=== PATIENT | female | born 2000 ===

== ENCOUNTER 2023-11-14 22:23 | Emergency (ER) | payer BC ==
[2023-11-14 23:54] LABS: BASOPHILS ABSOLUTE AUTO 0.06 K/uL (0.00-0.20); BASOPHILS PERCENT AUTO 0.7 % (0.0-1.0); EOSINOPHILS ABSOLUTE AUTO 0.13 K/uL (0.00-0.45); EOSINOPHILS PERCENT AUTO 1.5 % (0.0-6.0); HEMATOCRIT 40.2 % (37.0-47.0); HEMOGLOBIN 13.6 g/dL (12.0-16.0); IMMATURE GRAN ABSOLUTE AUTO 0.02 K/uL (0.00-0.05); IMMATURE GRAN PERCENT AUTO 0.2 % (0.0-0.4); LYMPHOCYTES ABSOLUTE AUTO 2.07 K/uL (1.00-4.80); MEAN CORPUSCULAR HEMOGLOBIN 31.7 pg (28.0-32.0); MEAN CORPUSCULAR HGB CONC 33.8 g/dL (32.0-36.0); MEAN CORPUSCULAR VOLUME 93.7 fL (83.0-99.0); MEAN PLATELET VOLUME 10.2 fL (9.4-12.3); MONOCYTES ABSOLUTE AUTO 0.89 K/uL (0.00-0.80); MONOCYTES PERCENT AUTO 10.3 % (0.0-8.0); NEUTROPHILS ABSOLUTE AUTO 5.44 K/uL (1.80-7.70); NEUTROPHILS PERCENT AUTO 63.3 % (41.0-71.0); PLATELET COUNT,PLT 192 K/uL (150-400); RED BLOOD CELL COUNT 4.29 M/uL (4.10-5.30); WHITE BLOOD CELL COUNT,WBC 8.61 K/uL (3.9-11.3)
[2023-11-15 00:17] LABS: A/G RATIO 1.1 (0.9-1.6); ALBUMIN 3.9 g/dL (3.4-5.0); BILIRUBIN TOTAL 0.5 mg/dL (0.2-1.0); CALCIUM 8.8 mg/dL (8.5-10.1); CARBON DIOXIDE,CO2 27.3 mmol/L (21.0-32.0); CREATININE 0.7 mg/dL (0.6-1.0); EST CRCL DRUG DOSING (CG) 109.97 mL/min; POTASSIUM,K 3.4 mmol/L (3.5-5.1); PROTEIN TOTAL,TP 7.4 g/dL (6.4-8.2)
[2023-11-15 00:24] LABS: BILIRUBIN,URINE NEGATIVE (NEGATIVE); COLOR,URINE YELLOW; GLUCOSE,URINE NEGATIVE (NEGATIVE); KETONES,URINE NEGATIVE (NEGATIVE); LEUKOCYTE ESTERASE,URINE NEGATIVE (NEGATIVE); NITRITE,URINE NEGATIVE (NEGATIVE); OCCULT BLOOD,URINE LARGE (NEGATIVE); PROTEIN,URINE NEGATIVE (NEGATIVE); UROBILINOGEN,URINE 0.2 EU/dL (<2.0)
[2023-11-15 00:31] LABS: APPEARANCE,URINE SLT CLOUDY
[2023-11-15 00:32] LABS: BACTERIA,URINE FEW (NEGATIVE); EPITHELIAL CELLS,URINE MODERATE (NONE-FEW); MUCUS,URINE MODERATE (NONE-MOD); RBC,URINE 75-100 (0-2/HPF); WBC,URINE 0-2 (0-5/HPF)
== END 2023-11-15 01:53 | disposition home or self-care (01) ==
LOC: MW.ED 22:23
DX: O20.9 Hemorrhage in early pregnancy, unspecified (principal); Z3A.00 Weeks of gestation of pregnancy not specified
CPT/HCPCS: 36415; 76801; 76801-26; 80053; 81001; 84702; 85025; 99282; 99284

== ENCOUNTER 2024-09-20 04:00 | Inpatient (IN) | payer BC ==
[2024-09-20] MEDS ORDERED: Ondansetron 4 MG/2 ML SDV IVPUSH PRN (04:28)
[2024-09-20] MEDS ORDERED: Methylergonovine 0.2 MG/1 ML Amp IM PRN (04:28)
[2024-09-20] MEDS ORDERED: Sodium Chloride 0.9% 10 ML Syringe FLUSH PRN (04:28)
[2024-09-20] MEDS ORDERED: Sodium Chloride 0.9% 20 ML SDV IV PRN (04:28)
[2024-09-20] MEDS ORDERED: Butorphanol 2 MG/ML SDV IVPUSH PRN (04:28)
[2024-09-20] MEDS ORDERED: Misoprostol 200 MCG Tab RECTAL PRN (04:28)
[2024-09-20] MEDS ORDERED: Lidocaine 1% 50 ML MDV INJECT PRN (04:28)
[2024-09-20] MEDS ORDERED: Water For Irrigation,Sterile 1,000 ML Container IRR PRN (04:28)
[2024-09-20] MEDS ORDERED: Acetaminophen 325 MG Tab PO PRN (04:28)
[2024-09-20] MEDS ORDERED: Sodium Chloride 0.9% 2.5 ML Syringe FLUSH PRN (04:28)
[2024-09-20] MEDS ORDERED: Carboprost Tromethamine 250 MCG/1 mL Vial IM PRN (04:28)
[2024-09-20] MEDS: Lactated Ringers 1,000 ML IV SCH (04:40)
[2024-09-20] MEDS ORDERED: Benzocaine/Menthol 20%-0.5% Spray 78 GM Cannister TOP PRN (04:43)
[2024-09-20] MEDS ORDERED: Docusate Sodium 100 MG Cap PO PRN (04:43)
[2024-09-20] MEDS ORDERED: diphenhydrAMINE 50 MG Cap PO PRN (04:43)
[2024-09-20] MEDS ORDERED: Acetaminophen 500 MG Tab PO PRN (04:43)
[2024-09-20] MEDS ORDERED: Simethicone 80 MG Tab.Chew PO PRN (04:43)
[2024-09-20] MEDS ORDERED: Ibuprofen 800 MG Tab PO PRN (04:43)
[2024-09-20] MEDS ORDERED: Lanolin 100% Cream 7 GM Tube TOP PRN (04:43)
[2024-09-20] MEDS ORDERED: Witch Hazel Medicated Pads 40/Jar TOP PRN (04:43)
[2024-09-20] MEDS: Ropivacaine HCl/PF 400 MG in Premix Bag 1 BAG EPIDUR SCH (04:55)
[2024-09-20] MEDS ORDERED: Phenylephrine HCl In 0.9% NaCl 1 MG/10 ML Syringe IVPUSH PRN (05:01)
[2024-09-20] MEDS ORDERED: ePHEDrine 50 MG/ML SDV IM PRN (05:01)
[2024-09-20] MEDS ORDERED: ePHEDrine 50 MG/ML SDV IVPUSH PRN (05:01)
[2024-09-20 05:02] LABS: HEMOGLOBIN 13.5 g/dL (12.0-16.0); MEAN CORPUSCULAR HEMOGLOBIN 32.1 pg (28.0-32.0); MEAN CORPUSCULAR HGB CONC 34.6 g/dL (32.0-36.0); MEAN CORPUSCULAR VOLUME 92.6 fL (83.0-99.0); MEAN PLATELET VOLUME 10.8 fL (9.4-12.3); PLATELET COUNT,PLT 212 K/uL (150-400); RED BLOOD CELL COUNT 4.21 M/uL (4.10-5.30); WHITE BLOOD CELL COUNT,WBC 19.29 K/uL (3.9-11.3)
[2024-09-20] MEDS ORDERED: dexmedeTOMIDine HCl 200 MCG/2 ML SDV EPIDUR SCH (05:15)
[2024-09-20] MEDS: Oxytocin/0.9 % Sodium Chloride 30 UNIT/500 ML BAG IV SCH (07:30)
[2024-09-20 09:05] LABS: PH,UMBILICAL ARTERIAL 7.196 (7.18-7.38); PH,UMBILICAL VENOUS 7.347 (7.25-7.45)
[2024-09-20] MEDS: Phenylephrine HCl In 0.9% NaCl 1 MG/10 ML Syringe ONE (14:31)
[2024-09-20] MEDS: Bupivacaine 0.5% 10 ML SDV ONE (14:31)
[2024-09-20] MEDS: Ropivacaine HCl/PF 200 ML ONE (14:31)
[2024-09-20] MEDS: Bupivacaine 0.5% 10 ML SDV INJECT ONE (14:32)
[2024-09-20] MEDS: Oxytocin/0.9 % Sodium Chloride 30 UNIT/500 ML BAG ONE (14:32)
[2024-09-21 05:44] LABS: HEMATOCRIT 38.1 % (37.0-47.0); HEMOGLOBIN 12.7 g/dL (12.0-16.0); MEAN CORPUSCULAR HGB CONC 33.3 g/dL (32.0-36.0); MEAN CORPUSCULAR VOLUME 92.9 fL (83.0-99.0); MEAN PLATELET VOLUME 10.1 fL (9.4-12.3); PLATELET COUNT,PLT 185 K/uL (150-400); WHITE BLOOD CELL COUNT,WBC 16.12 K/uL (3.9-11.3)
== END 2024-09-21 12:30 | disposition home or self-care (01) | DRG 560 ==
LOC: MW.OB 04:00 → MW.OBCHECK 04:00 → MW.OB 04:28 → OBSVTOIN 07:28 → MW.OB 12:29
PROVIDERS: ADMIT Obstetrics & Gynecology; ATTEND Obstetrics & Gynecology
PROC: 10E0XZZ Delivery of Products of Conception, External Approach (ICD-10-PCS; principal; 2024-09-20)
PROC: 3E0R3BZ Introduction of Anesthetic Agent into Spinal Canal, Percutaneous Approach (ICD-10-PCS; 2024-09-20)
PROC: 0HQ9XZZ Repair Perineum Skin, External Approach (ICD-10-PCS; 2024-09-20)
DX: O42.02 Full-term premature rupture of membranes, onset of labor within 24 hours of rupture (principal); O48.0 Post-term pregnancy; D68.51 Activated protein C resistance; O99.12 Other diseases of the blood and blood-forming organs and certain disorders involving the immune mechanism complicating childbirth; Z3A.40 40 weeks gestation of pregnancy; Z37.0 Single live birth; O70.0 First degree perineal laceration during delivery; Z90.49 Acquired absence of other specified parts of digestive tract; Z98.890 Other specified postprocedural states
CPT/HCPCS: 01967; 36415; 59025; 59409; 82803; 85027; 86592; 86850; 86900; 86901; A9270-GY; J0665; J2371; J2590; J2795; J7120